=== PATIENT | female | born 1990 | race Hispanic/Latino ===

== ENCOUNTER 2021-07-08 20:34 | Emergency (ER) | payer SELFPAY ==
[~2021-07-08] VITALS: Ht 165.1 cm; Wt 75.3 kg
[2021-07-08] MEDS ORDERED: ALBUTEROL SULF 0.083% NEB SOLN 3 ML NEB NEB STA (20:53)
[2021-07-08] MEDS ORDERED: DIPHENHYDRAMINE HCL 25 MG CAP PO ONE (21:00)
[2021-07-08] MEDS ORDERED: PROVENTIL HFA6.7 GM INH (21:00)
[2021-07-08] MEDS ORDERED: ALBUTEROL SULF 0.083% NEB SOLN 3 ML NEB ONE (21:10)
[2021-07-08] MEDS ORDERED: DIPHENHYDRAMINE HCL 25 MG CAP ONE (21:10)
[2021-07-08 21:40] VITALS: BP 137/82
== END 2021-07-08 21:40 | disposition home or self-care (01) ==
LOC: FSED 20:36
DX: H10.213 Acute toxic conjunctivitis, bilateral (principal); Z77.098 Contact with and (suspected) exposure to other hazardous, chiefly nonmedicinal, chemicals
CPT/HCPCS: 99282